=== PATIENT | male | born 1970 | race Caucasian/White ===

== ENCOUNTER 2017-03-01 17:44 | Emergency (ER) | payer MEDICAID, OTHER ==
[~2017-03-01] VITALS: Ht 193 cm; Wt 150.0 kg
[~2017-03-01 17:44] MED LIST: AUGM875T PO; PRED20 PO
[2017-03-01 17:47] VITALS: BP 175/105; PULSE 90; RESP 24; TEMP 97.7; O2SAT 92
--- NOTE | 2017-03-01 18:09 | PD ---
Physical Exam Date Seen by Provider: Mar 01, 2017 Time Seen by Provider: 18:08 Data Data Last Documented VS Vital Signs Date Time Temp Pulse Resp B/P Pulse Ox O2 Delivery O2 Flow Rate FiO2 03/01/17 17:47 97.7 90 24 175/105 92 Room Air [facility] Supervised Visit with MARGARETTE: No Narrative Course 46 YO M with complaint of pruritis of ears, closed throat feeling ~1 hour after eating walnuts and almonds. Denies difficulties breathing, voice changes. O2 sat 93% in triage. Seen in triage. Awaiting bed placement. Zulay Naranjo Mar 01, 2017 18:09
[2017-03-01] MEDS ORDERED: FAMOTIDINE 20 MG/2 ML VIAL IV PUSH ONE (18:30)
[2017-03-01] MEDS ORDERED: methylPREDNISolone SOD SUCC 125 MG/2 ML VIAL IVP ONE (18:30)
[2017-03-01] MEDS ORDERED: EPINEPHrine HCL (1:1000) 1 MG/ML VIAL IM ONE (18:30)
[2017-03-01 18:47] VITALS: O2SAT 93
--- NOTE | 2017-03-01 18:50 | PD ---
HPI Chief Complaint: Allergic/Adverse Reaction Time Seen by Provider: 18:42 Travel History International Travel<30 days: No Contact w/Intl Traveler<30days: No Traveled to known affect area: No History of Present Illness HPI 46-year-old male that presents to the ED for evaluation of allergic reaction. Patient reports that after eating walnuts and 1 [place] today he developed itching on his ears and sensation to his throat was closing. Per patient he has had allergic reactions similar to this in the past to other foods but states that he is not quite sure he's ever had it to nuts. Per patient he wasn' t too sure if he needed to come as he took and Benadryl and it made him feel better. Per patient she does still feels funny and swelling but not as bad as initially. Per patient he has stopped using those not since. He denies using epinephrine. He denies any other medical issues. No shortness of breath. No chest pain. He denies any other medical issues at this time. Per patient he has no pain. He took the Benadryl less than an hour ago. Took 75 mg. PFSH Past Medical History Hx Anticoagulant Therapy: Yes (BABY ASPIRIN DAILY ) Respiratory: Yes (BRONCHITIS ) Social History Alcohol Use: No Tobacco Use: No Substance Use: No Allergies-Medications (Allergen,Severity, Reaction): Coded Allergies: Cogswell (Verified Allergy, Severe, 03/01/17) [place] (Verified Allergy, Intermediate, 03/01/17) Apple (Verified Allergy, Unknown, 03/01/17) Cantaloupe (Verified Allergy, Unknown, 03/01/17) Reported Meds & Prescriptions Reported Meds & Active Scripts Active Vistaril (Hydroxyzine Pamoate) 50 Mg Cap 50 Mg PO QID PRN Epipen 2-Juan Inj (Epinephrine) 0.3 Mg/0.3 Ml Pfpen 0.3 Mg SQ ONCE PRN Prednisone 20 Mg Tab 20 Mg PO BID Review of Systems Except as stated in HPI: all other systems reviewed are Neg Physical Exam Narrative GENERAL: SKIN: Warm and dry. HEAD: Atraumatic. Normocephalic. EYES: Pupils equal and round. No scleral icterus. No injection or drainage. ENT: No nasal bleeding or discharge. Mucous membranes pink and moist. Tongue is midline. Patient does have some soft tissue swelling on the back of the throat as well as in the uvula but minimal. Tongue itself appears to be midline minimal edema. Some swelling on the face otherwise unremarkable. No rashes noted on the body. NECK: Trachea midline. No JVD. CARDIOVASCULAR: Regular rate and rhythm. No murmurs, S3, S4. RESPIRATORY: No accessory muscle use. Clear to auscultation. Breath sounds equal bilaterally. GASTROINTESTINAL: Abdomen soft, non-tender, nondistended. Hepatic and splenic margins not palpable. MUSCULOSKELETAL: Extremities without clubbing, cyanosis, or edema. No obvious deformities. NEUROLOGICAL: Awake and alert. No obvious cranial nerve deficits. Motor grossly within normal limits. Five out of 5 muscle strength in the arms and legs. Normal speech. PSYCHIATRIC: Appropriate mood and affect; insight and judgment normal. Data Data Last Documented VS Vital Signs Date Time Temp Pulse Resp B/P Pulse Ox O2 Delivery O2 Flow Rate FiO2 03/01/17 19:06 78 18 94 Room Air 03/01/17 19:05 152/93 03/01/17 17:47 97.7 Orders Ecg Monitoring (03/01/17 18:27) Iv Access Insert/Monitor (03/01/17 18:27) Oximetry (03/01/17 18:27) Methylprednisolone So Succ Inj (Solumedr (03/01/17 18:30) Famotidine Inj (Pepcid Inj) (03/01/17 18:30) Epinephrine (1:1000) Inj (Adrenalin (1:1 (03/01/17 18:30) MDM Medical Decision Making Medical Screen Exam Complete: Yes Emergency Medical Condition: Yes Medical Record Reviewed: Yes Differential Diagnosis Allergic reaction versus anaphylaxis versus food allergy versus allergic dermatitis Narrative Course 46-year-old male that presents to the ED for evaluation of allergic reaction. Patient was properly examined and was found to have signs and symptoms consistent appears to be unclear reaction. Patient does have soft tissue swelling on the tongue and mouth is minimal. At this time I recommended treating with epinephrine, Solu-Medrol as well as Pepcid as patient already had 75 mg of Benadryl. Patient will be reassessed one hour later. Patient agrees with this plan. Patient rechecked and feels improved. Agrees with discharge plan. Given prescriptions for epipen, prednisone, atarax. F/u with PCP. See ED if worst. Diagnosis Primary Impression: Allergic reaction Qualified Code: T78.40XA - Allergic reaction, initial encounter Patient Instructions: General Instructions Additional Instructions: Take medications as prescribed. Follow with PCP. See ED worsening symptoms. Stay away from Almonds and walnuts. Med/Other Pt SpecificInfo: Prescription(s) given Scripts Hydroxyzine Pamoate (Vistaril)50 Mg Cap50 Mg PO QID PRN (ALLERGIES) #20 CAP Ref 0 Prov:Derek Martinez MD 03/01/17 Epinephrine Inj (Epipen 2-Juan Inj)0.3 Mg/0.3 Ml Pfpen0.3 Mg SQ ONCE PRN ( ALLERGIC REACTION) #1 PACK Ref 0 Prov:Derek Martinez MD 03/01/17 Prednisone 20 Mg Tab20 Mg PO BID #10 TAB Prov:Derek Martinez MD 03/01/17 Disposition: 01 DISCHARGE HOME Condition: Stable Bubba Chavez Mar 01, 2017 18:50
[2017-03-01 19:05] VITALS: BP 152/93; PULSE 78; RESP 17; O2SAT 94
[2017-03-01] MEDS ORDERED: EPIP0.3I SQ (19:28)
[2017-03-01] MEDS ORDERED: VIST50CA PO (19:28)
[2017-03-01] MEDS ORDERED: PRED20 PO (19:28)
[2017-03-01 20:56] VITALS: BP 170/87; PULSE 84; RESP 14; O2SAT 97
== END 2017-03-01 20:58 | disposition home or self-care (01) ==
LOC: NEPD 17:44
DX: T78.40XA Allergy, unspecified, initial encounter (principal)
CPT/HCPCS: 96372; 96374; 96375; 99284; J0171; J2930

== ENCOUNTER 2017-06-17 15:04 | Emergency (ER) | payer MEDICAID ==
[~2017-06-17] VITALS: Ht 193 cm; Wt 145.0 kg
[~2017-06-17 15:04] MED LIST changes: -AUGM875T PO; +EPIP0.3I SQ; +VIST50CA PO
[2017-06-17 15:06] VITALS: BP 139/72; PULSE 118; RESP 26; TEMP 99.7; O2SAT 92
[2017-06-17] MEDS ORDERED: ZINC220T PO (15:55)
[2017-06-17] MEDS ORDERED: VITA250T3 PO (15:55)
[2017-06-17] MEDS ORDERED: MULTTAB67 PO (15:55)
[2017-06-17] MEDS ORDERED: CREAPOW PO (15:55)
[2017-06-17] MEDS ORDERED: ECHI80CA (15:55)
[2017-06-17] MEDS ORDERED: [UNRECOGNIZED DRUG - CODE] (15:55)
--- NOTE | 2017-06-17 15:57 | PD ---
HPI Chief Complaint: Cold / Flu Symptoms Time Seen by Provider: 15:39 Travel History International Travel<30 days: No Contact w/Intl Traveler<30days: No Traveled to known affect area: No History of Present Illness HPI 46yo M with PMH of obesity, sleep apnea presents to the ED with c/o throat pain , right ear pain, nasal congestion for a few days. No fever but felt warm. Occasional cough. Denies any chest pain, sob, n/v, abdominal pain, dysuria, hematuria, focal weakness or numbness. Denies any PE or DVT. PFSH Past Medical History Hx Anticoagulant Therapy: Yes (BABY ASPIRIN DAILY ) Hypertension: Yes Respiratory: Yes (BRONCHITIS ) Sleep Apnea: Yes Tetanus Vaccination: Unknown Influenza Vaccination: No Past Surgical History Surgical History: No Previous Surgery Social History Alcohol Use: No Tobacco Use: No Substance Use: No Allergies-Medications (Allergen,Severity, Reaction): Coded Allergies: walnut (Unverified Allergy, Severe, 06/17/17) almond (Unverified Allergy, Intermediate, 06/17/17) apple (Unverified Allergy, Unknown, 06/17/17) melon (Unverified Allergy, Unknown, 06/17/17) Reported Meds & Prescriptions Reported Meds & Active Scripts Active Amoxicillin 875 Mg Tab 875 Mg PO BID 10 Days Zithromax Z-Juan (Azithromycin) 250 Mg Dspk 250 Mg PO DIRECTED 500 MG (2 tabs) day 1, then 1 tab days 2-5. Reported Vitamin C (Ascorbic Acid) 250 Mg Tab 250 Mg PO Zinc Sulfate 220 Mg Tab 220 Mg PO DAILY Echinacea 80 Mg Cap Amino Acid (Amino Acids) 1 Each Capsule [Creatine] 1 Cap PO DAILY Multiple Vitamin 1 Tab 1 Tab PO DAILY Review of Systems Except as stated in HPI: all other systems reviewed are Neg Physical Exam Narrative GENERAL: 46yo M in mild distress. SKIN: Focused skin assessment warm/dry. HEAD: Atraumatic. Normocephalic. EYES: Pupils equal and round. No scleral icterus. No injection or drainage. ENT: +Increased right nasal turbinate swelling. Throat: Mild uvula erythema. Ears: TM wnl bilaterally. Mild ttp maxillary sinus bilaterally. NECK: Trachea midline. No JVD. CARDIOVASCULAR: Regular rate and rhythm. No murmur appreciated. RESPIRATORY: No accessory muscle use. Clear to auscultation. Breath sounds equal bilaterally. GASTROINTESTINAL: Abdomen soft, non-tender, nondistended. No rebound tenderness or guarding. MUSCULOSKELETAL: No obvious deformities. No clubbing. No cyanosis. No edema. NEUROLOGICAL: Awake and alert. No obvious cranial nerve deficits. Motor grossly within normal limits. Normal speech. PSYCHIATRIC: Appropriate mood and affect; insight and judgment normal. Data Data Last Documented VS Vital Signs Date Time Temp Pulse Resp B/P (MAP) Pulse Ox O2 Delivery O2 Flow Rate FiO2 06/17/17 22:31 06/17/17 18:25 98.3 100 21 94 Room Air Orders Orders Group A Rapid Strep Screen (06/17/17 15:51) Chest, Single Ap (06/17/17 ) Influenzae A/B Antigen (06/17/17 15:57) Pseudoephedrine (Sudafed) (06/17/17 16:15) Acetaminophen 650 Mg/20 Ml Liq (Tylenol (06/17/17 16:15) Strep Culture (Group A) (06/17/17 15:55) Blood Culture (06/17/17 17:02) Complete Blood Count With Diff (06/17/17 17:02) Basic Metabolic Panel (Bmp) (06/17/17 17:02) Prothrombin Time / Inr (Pt) (06/17/17 17:02) Act Partial Throm Time (Ptt) (06/17/17 17:02) Lactic Acid Sepsis Protocol (06/17/17 17:02) Ct Pulmonary Angiogram (06/17/17 ) Ceftriaxone Inj (Rocephin Inj) (06/17/17 17:15) Azithromycin (Zithromax) (06/17/17 17:15) Iohexol 350 Inj (Omnipaque 350 Inj) (06/17/17 20:57) Labs Laboratory Tests Test 06/17/17 17:20 White Blood Count 7.4 TH/MM3 Red Blood Count 5.48 MIL/MM3 Hemoglobin 17.7 GM/DL Hematocrit 51.7 % Mean Corpuscular Volume 94.3 FL Mean Corpuscular Hemoglobin 32.2 PG Mean Corpuscular Hemoglobin Concent 34.2 % Red Cell Distribution Width 13.7 % Platelet Count 148 TH/MM3 Mean Platelet Volume 9.2 FL Neutrophils (%) (Auto) 70.6 % Lymphocytes (%) (Auto) 14.1 % Monocytes (%) (Auto) 14.7 % Eosinophils (%) (Auto) 0.3 % Basophils (%) (Auto) 0.3 % Neutrophils # (Auto) 5.2 TH/MM3 Lymphocytes # (Auto) 1.0 TH/MM3 Monocytes # (Auto) 1.1 TH/MM3 Eosinophils # (Auto) 0.0 TH/MM3 Basophils # (Auto) 0.0 TH/MM3 CBC Comment DIFF FINAL Differential Comment Prothrombin Time 12.8 SEC Prothromb Time International Ratio 1.2 RATIO Activated Partial Thromboplast Time 33.6 SEC Blood Urea Nitrogen 9 MG/DL Creatinine 1.05 MG/DL Random Glucose 115 MG/DL Calcium Level 8.5 MG/DL Sodium Level 138 MEQ/L Potassium Level 4.2 MEQ/L Chloride Level 99 MEQ/L Carbon Dioxide Level 34.4 MEQ/L Anion Gap 5 MEQ/L Estimat Glomerular Filtration Rate 76 ML/MIN Lactic Acid Level 1.5 mmol/L [facility] Medical Decision Making Medical Screen Exam Complete: Yes Emergency Medical Condition: Yes Differential Diagnosis URI vs. sinusitis vs. pneumonia vs. influenza Narrative Course 46yo M with morbid obesity and sleep apnea here with nasal congestion, throat pain and right ear pain. Pt's O2 sat fluctuates depending on the position. Will do CXR. CXR showed masslike left midlung zone opacities with central lucency and more confluent left lower lobe consolidation. Findings are concerning for left lower lobe pneumonia and cavitary nodules in left midlung zone. Will cover with antibiotics, do blood culture, sepsis work up since pt is tachycardic. Will do CT angio to r/o PE as well. Sign out to next team to follow up. Pt also given sudafed and acetaminophen. Diagnosis Primary Impression: Pneumonia Qualified Codes: J18.1 - Lobar pneumonia, unspecified organism Scripts Amoxicillin (Amoxicillin) 875 Mg Tab 875 MG PO BID for Infection for 10 Days, #20 TAB 0 Refills Prov: Wu Contreras MD 06/17/17 Azithromycin (Zithromax Z-Juan) 250 Mg Dspk 250 MG PO DIRECTED for Infection, #1 DSPK 0 Refills 500 MG (2 tabs) day 1, then 1 tab days 2-5. Prov: Wu Contreras MD 06/17/17 Becka Powell DO Jun 17, 2017 15:57
[2017-06-17] MEDS ORDERED: ACETAMINOPHEN 650 MG/20.3 ML UDC PO ONE (16:15)
[2017-06-17] MEDS ORDERED: PSEUDOEPHEDRINE HCL 30 MG TAB PO ONE (16:15)
--- NOTE | 2017-06-17 16:44 | RADRPT ---
EXAM DATE/TIME: 06/17/2017 16:13 [facility] COMPARISON: No previous studies available for comparison. INDICATIONS : Cough and congestion. MEDICAL HISTORY : None. SURGICAL HISTORY : None. ENCOUNTER: Initial ACUITY: 4 - 6 days PAIN SCORE: 0/10 LOCATION: Bilateral chest FINDINGS: Patchy somewhat nodular opacities in the left midlung zone. More confluent airspace disease in the le ft lung base. Cardiac silhouette is in the upper limits of normal. Central pulmonary vascularity is i ndistinct. Bony thorax is intact. CONCLUSION: Masslike left midlung zone opacities with central lucency and more confluent left lower lobe consolid ation. This may be projectional. Findings are concerning for left lower lobe pneumonia and cavitary n odules in the left midlung zone. Consider formal PA and lateral views of the chest better evaluation. Alternatively, CT examination may be performed as clinically indicated. Timur Richardson MD on June 17, 2017 at 16:40 Board Certified Radiologist. This report was verified electronically.
[2017-06-17] MEDS ORDERED: cefTRIAXone INJ 1,000 MG in SODIUM CHLORIDE 0.9% INJ 100 ML IV ONE (17:15)
[2017-06-17] MEDS ORDERED: AZITHROMYCIN 250 MG TAB PO ONE (17:15)
[2017-06-17 17:39] LABS: AUTOMATED NEUTROPHIL # 5.2 TH/MM3 (1.8-7.7); BASOPHIL % 0.3 % (0.0-2.0); EOSINOPHIL % 0.3 % (0.0-4.0); HEMATOCRIT 51.7 % (39.0-51.0); HEMO FLAGS DIFF FINAL; LYMPH % 14.1 % (9.0-44.0); MEAN CELL VOLUME 94.3 FL (80.0-100.0); MEAN CORPUSCULAR HEMOGLOBIN 32.2 PG (27.0-34.0); MEAN CORPUSCULAR HGB CONC 34.2 % (32.0-36.0); MONO % 14.7 % (0.0-8.0); NEUT % 70.6 % (16.0-70.0); PLATELET COUNT 148 TH/MM3 (150-450); RED BLOOD COUNT 5.48 MIL/MM3 (4.50-5.90); RED CELL DISTRIBUTION WIDTH 13.7 % (11.6-17.2); WHITE BLOOD COUNT 7.4 TH/MM3 (4.0-11.0)
[2017-06-17 17:49] LABS: APTT (PATIENT) 33.6 SEC (24.3-30.1); INTERNATIONAL NORMALIZED RATIO 1.2 RATIO; PROTHROMBIN TIME - PATIENT 12.8 SEC (9.8-11.6)
[2017-06-17 17:57] LABS: BICARBONATE 34.4 MEQ/L (21.0-32.0); POTASSIUM 4.2 MEQ/L (3.5-5.1)
[2017-06-17 18:25] VITALS: BP 121/71; PULSE 100; RESP 21; TEMP 98.3; O2SAT 94
[2017-06-17] MEDS ORDERED: IOHEXOL 350 MG/ML 10 ML VIAL (for RAD DIAG) IVCONTRAST ONE (20:57)
--- NOTE | 2017-06-17 22:13 | RADRPT ---
EXAM DATE/TIME: 06/17/2017 20:51 [facility] COMPARISON: CHEST SINGLE AP, June 17, 2017, 16:13. INDICATIONS : Shortness of breath. IV CONTRAST: 80 cc Omnipaque 350 (iohexol) IV RADIATION DOSE: 27.08 CTDIvol (mGy) ; Patient body habitus MEDICAL HISTORY : Hypertension. SURGICAL HISTORY : None. ENCOUNTER: Initial ACUITY: 1 day PAIN SCALE: 0/10 LOCATION: Chest TECHNIQUE: Volumetric scanning of the chest was performed using a pulmonary embolism protocol MIP images were re constructed. Using automated exposure control and adjustment of the mA and/or kV according to patien t size, radiation dose was kept as low as reasonably achievable to obtain optimal diagnostic quality images. DICOM format image data is available electronically for review and comparison. Follow-up recommendations for detected pulmonary nodules are based at a minimum on nodule size and pa tient risk factors according to Fleischner Society Guidelines. FINDINGS: There is a focal area of suspected consolidation seen at the left upper lung measuring approximately 8.3 cm in AP dimension, 4.0 cm in transverse dimension and approximately 3.2 cm in height. The more central aspect of this area is concerning for a possible underlying mass. Some of the surrounding inc reased density may be post obstructive pneumonitis. The right lung is clear. There is some mildly pro minent lymph nodes seen in the prevascular and AP window region measuring up to 1.5 x 1.0 cm in size. There are some mildly prominent lymph nodes in the left tracheal bronchial region. No pleural effu daija or pericardial effusion is seen. There is decreased attenuation to the liver likely related to hepatic steatosis. The opacification of the pulmonary arteries is somewhat suboptimal. A definite pulmonary embolus is not seen. There is more contrast seen within the systemic arterial system. CONCLUSION: 1. Focal consolidation or mass in the left upper lung with some adenopathy in the left mediastinum. A area of inflammatory change/pneumonia could have this appearance. Underlying mass with some surroun ding postobstructive pneumonitis and adenopathy could also have a similar appearance. This area coul d be further evaluated with a PET/FDG study to determine if it is metabolically active or not at some point. 2. A pulmonary embolus is not clearly identified. Chidi Estes MD on June 17, 2017 at 21:57 Board Certified Radiologist. This report was verified electronically.
[2017-06-17] MEDS ORDERED: AMOX875T PO (22:29)
[2017-06-17] MEDS ORDERED: ZITHTAB PO (22:29)
--- NOTE | 2017-06-17 22:29 | PD ---
Data Data Last Documented VS Vital Signs Date Time Temp Pulse Resp B/P (MAP) Pulse Ox O2 Delivery O2 Flow Rate FiO2 06/17/17 18:25 98.3 100 21 121/71 (88) 94 Room Air Orders Orders Group A Rapid Strep Screen (06/17/17 15:51) Chest, Single Ap (06/17/17 ) Influenzae A/B Antigen (06/17/17 15:57) Pseudoephedrine (Sudafed) (06/17/17 16:15) Acetaminophen 650 Mg/20 Ml Liq (Tylenol (06/17/17 16:15) Strep Culture (Group A) (06/17/17 15:55) Blood Culture (06/17/17 17:02) Complete Blood Count With Diff (06/17/17 17:02) Basic Metabolic Panel (Bmp) (06/17/17 17:02) Prothrombin Time / Inr (Pt) (06/17/17 17:02) Act Partial Throm Time (Ptt) (06/17/17 17:02) Lactic Acid Sepsis Protocol (06/17/17 17:02) Ct Pulmonary Angiogram (06/17/17 ) Ceftriaxone Inj (Rocephin Inj) (06/17/17 17:15) Azithromycin (Zithromax) (06/17/17 17:15) Iohexol 350 Inj (Omnipaque 350 Inj) (06/17/17 20:57) Labs Laboratory Tests Test 06/17/17 17:20 White Blood Count 7.4 TH/MM3 Red Blood Count 5.48 MIL/MM3 Hemoglobin 17.7 GM/DL Hematocrit 51.7 % Mean Corpuscular Volume 94.3 FL Mean Corpuscular Hemoglobin 32.2 PG Mean Corpuscular Hemoglobin Concent 34.2 % Red Cell Distribution Width 13.7 % Platelet Count 148 TH/MM3 Mean Platelet Volume 9.2 FL Neutrophils (%) (Auto) 70.6 % Lymphocytes (%) (Auto) 14.1 % Monocytes (%) (Auto) 14.7 % Eosinophils (%) (Auto) 0.3 % Basophils (%) (Auto) 0.3 % Neutrophils # (Auto) 5.2 TH/MM3 Lymphocytes # (Auto) 1.0 TH/MM3 Monocytes # (Auto) 1.1 TH/MM3 Eosinophils # (Auto) 0.0 TH/MM3 Basophils # (Auto) 0.0 TH/MM3 CBC Comment DIFF FINAL Differential Comment Prothrombin Time 12.8 SEC Prothromb Time International Ratio 1.2 RATIO Activated Partial Thromboplast Time 33.6 SEC Blood Urea Nitrogen 9 MG/DL Creatinine 1.05 MG/DL Random Glucose 115 MG/DL Calcium Level 8.5 MG/DL Sodium Level 138 MEQ/L Potassium Level 4.2 MEQ/L Chloride Level 99 MEQ/L Carbon Dioxide Level 34.4 MEQ/L Anion Gap 5 MEQ/L Estimat Glomerular Filtration Rate 76 ML/MIN Lactic Acid Level 1.5 mmol/L MDM Supervised Visit with MARGARETTE: No Narrative Course The patient was initially evaluated by the previous provider and signed out to me at the beginning of my shift pending labs, CT pulmonary angiogram, and disposition. See her note for further details. Briefly this a 46-year-old male who is here for cold/flulike symptoms with upper respiratory symptoms and congestion. Chest x-ray was initially ordered and shows: CONCLUSION: Masslike left midlung zone opacities with central lucency and more confluent left lower lobe consolidation. This may be projectional. Findings are concerning for left lower lobe pneumonia and cavitary nodules in the left midlung zone. Consider formal PA and lateral views of the chest better evaluation. Alternatively, CT examination may be performed as clinically indicated. After this was resulted, labs were ordered as well as a CT pulmonary angiogram cannot really rule out PE but to further investigate the areas of concern on the chest x-ray. The patient was also given a dose of IV Rocephin and azithromycin. Initial vital signs show heart rate 118, blood pressure 139/72, pulse ox 92% on room air, oral temp of 99.7F. Repeat vital signs show heart rate 100, blood pressure 121/71, pulse ox 94% on room air, oral temp of 98.3F. CBC: WBC 7.4, hemoglobin 17.7, hematocrit 51.7, platelets 148, neutrophils 71%. BMP is essentially unremarkable. Lactic acid is 1.5. CT pulmonary angiogram: CONCLUSION: 1. Focal consolidation or mass in the left upper lung with some adenopathy in the left mediastinum. A area of inflammatory change/pneumonia could have this appearance. Underlying mass with some surrounding postobstructive pneumonitis and adenopathy could also have a similar appearance. This area could be further evaluated with a PET/FDG study to determine if it is metabolically active or not at some point. 2. A pulmonary embolus is not clearly identified. Patient and the patient's significant other were made aware of all findings and provided a copy of the CT pulmonary angiogram report. He does have slight labored breathing, however his lung sounds are clear without wheezes, and my advice was to admit him for further antibiotic therapy and possible PET scan. The patient is adamant that he is unable to be admitted at this time because he needs to work in order to pay his bills. He understands that there are risks to not being admitted including but not limited to respiratory failure, septic shock, worsening clinical condition, and permanent disability. He does not have a primary care physician with whom to follow-up with. I had a long discussion with him regarding my advice to have him admitted and again he wishes to be discharged. Plan is to discharge him home with a prescription for azithromycin and amoxicillin. I will give him the information to the [facility] to follow-up with this week. He understands that the abnormality in his chest could be lung cancer. He denies history of smoking. He was informed on when to return to the emergency department. He verbalizes understanding and agreement with plan. Diagnosis Primary Impression: Pneumonia Qualified Codes: J18.1 - Lobar pneumonia, unspecified organism Additional Impression: Lung mass Referrals: [facility] 3 days Primary Care Physician 3 days Additional Instruction: Follow-up with a primary care physician this week. Return to the emergency department for worsening symptoms or any other concerns. Scripts Amoxicillin (Amoxicillin) 875 Mg Tab 875 MG PO BID for Infection for 10 Days, #20 TAB 0 Refills Prov: Wu Contreras MD 06/17/17 Azithromycin (Zithromax Z-Juan) 250 Mg Dspk 250 MG PO DIRECTED for Infection, #1 DSPK 0 Refills 500 MG (2 tabs) day 1, then 1 tab days 2-5. Prov: Wu Contreras MD 06/17/17 Disposition: 01 DISCHARGE HOME Condition: Stable Wu Contreras MD Jun 17, 2017 22:29
== END 2017-06-17 22:47 | disposition home or self-care (01) ==
LOC: NEPD 15:04
DX: J18.1 Lobar pneumonia, unspecified organism (principal); I10 Essential (primary) hypertension; G47.30 Sleep apnea, unspecified; R06.02 Shortness of breath
CPT/HCPCS: 71010; 71275; 80048; 83605; 85025; 85610; 85730; 87040; 87081; 87804; 87880; 96365; 99285; J0696; Q9967